=== PATIENT | female | born 1955 | race Asian ===

== ENCOUNTER → 2018-09-05 08:20 | Outpatient (CLI) | payer OTHER, SELFPAY ==
[2016-04-10 01:01] VITALS: BMI 25.2
--- NOTE | 2018-09-05 08:22 | RAD_ITS ---
STUDY: X-RAY - RIGHT HIP REASON FOR EXAM: Hip pain. TECHNIQUE: 2 views of the hip. COMPARISON: None. FINDINGS: There is a healed subtrochanteric fracture with intact orthopedic hardware. There is interval development of a radiolucency adjacent to the proximal and distal femoral intramedullary syed measuring 2 mm in width. Normal acetabulum. Normal hip joint. Normal visualized superior and inferior pubic rami and ischial tuberosities. RAD/HIP, UNI W/ Pelvis 2-3 Views IMPRESSION: Healed subtrochanteric fracture. Interval development of radiolucency adjacent to the femoral intramedullary syed. Electronically Signed: Lio Amaya MD at 9:10 EST Tel , Service support ,
--- OUTSIDE RECORDS SUMMARY | 2018-10-31 08:05 | XMS RPT_ITS ---
:1955 Author Organization OHIP Care Team Providers Name Role Phone Domingo Nowak Attending Unavailable Domingo Nowak Referring Unavailable Domingo Nowak Primary Care Unavailable Domingo Nowak Attending Unavailable Domingo Nowak Referring Unavailable Domingo Nowak Primary Care Unavailable Jocelyn Medina D.C. Attending Unavailable DOCTOR, OUT OF TOWN Referring Unavailable Kerry Hutchison Attending Unavailable DOCTOR, OUT OF TOWN Referring Unavailable Kerry Hutchison Attending Unavailable Kianna Kerry Referring Unavailable SUELLEN MONTEMAYOR Primary Care Unavailable Kerry Hutchison Attending Unavailable Kerry Hutchison Referring Unavailable SUELLEN MONTEMAYOR Primary Care Unavailable Jocelyn Medina D.C. Attending Unavailable DOCTOR, OUT OF TOWN Referring Unavailable Jocelyn Medina D.C. Attending Unavailable DOCTOR, OUT OF TOWN Referring Unavailable PROBLEMS PROBLEMS DATE TYPE CONDITION / CODE ATTENDING STATUS SOURCE 09/18/2018 Unknown M99.02 - Segmental [facility] thoracic region / Repository M99.02(ICD-10) 09/18/2018 Unknown M99.05 - Segmental Dossie, Jocelyn [facility] [place] [facility] pelvic region / Repository M99.05(ICD-10) 09/18/2018 Unknown M99.03 - Segmental Dossie, Jocelyn Active [place] [facility] lumbar region / Repository M99.03(ICD-10) 09/05/2018 Unknown M25.551 - [facility], [facility] [place] right hip / [facility] M25.551(ICD-10) Hospital Repository 09/05/2018 Unknown M54.5 - Low back Ch[place]ore[place], Active [place] pain / [facility] M54.5(ICD-10) Hospital Repository 03/29/2018 Admitting Encntr screen Domingo Nowak [employer] Diagnosis mammogram for System malignant neoplasm Repository of breast / Z12.31(ICD-10) 03/29/2018 Admitting Asymptomatic Domingo Nowak [employer] Diagnosis menopausal state / System Z78.0(ICD-10) Repository 03/05/2018 Admitting Encounter for Domingo Nowak [employer] Diagnosis screening for System osteoporosis / Repository Z13.820(ICD-10) 03/05/2018 Admitting Age-related Domingo Nowak [employer] Diagnosis osteoporosis w/o System current Repository pathological fracture / M81.0(ICD-10) 03/05/2018 Admitting Oth disrd of bone Domingo Nowak [employer] Diagnosis density and System structure, Repository unspecified site / M85.80(ICD-10) PROCEDURES PROCEDURES No Procedure Records FoundRESULTS RESULTS CHIROPRACTIC REPORT Observed: 09/17/2018 Status: F Source: [place] 3:27 PM [facility] REPOSITORY [facility] [place] [address] OFFICE VISIT Date of Service: 09/17/18 MR#: [id number] Acct: [id number] Name: SONYA BRICE Rep #: [id number] : 1955 Provider: Jocelyn You D.C. Age/Sex: 63/F [place] [facility] [place]: Signed Intake Vital Signs09/17/18 Height 5 ft 2 in 12/11/18 Weight: 135 lb 09/17/18 Body Mass Index (BMI) 24.7 Intake Visit Reasons: back pain Chief Complaint: R sided low back pain Is patient in pain?: Yes Allergies No Known Allergies Allergy (Verified 04/09/16 19:12) Medications Calcium Carbonate/Vitamin D3 [Calcium 600-Vit D3 400 Caplet] 1 ea PO DAILY 04/09/16 [History Confirmed 04/09/16] Acetaminophen [Tylenol] 1,000 mg PO Q8 tab 04/13/16 [Rx] Celecoxib [Celebrex] 200 mg PO DAILY #30 cap 04/13/16 [Rx] Metoprolol Tartrate [Lopressor (beta kim)] 25 mg PO BID #60 tab 04/13/16 [Rx] Rivaroxaban [Xarelto] 10 mg PO DAILY@0600 #30 tab 04/13/16 [Rx] traMADol [Ultram] 50 mg PO Q6H PRN PRN #50 tab 04/13/16 [Rx] PFSH Social History Smoking Status: Never smoker alcohol intake: never substance use type: does not use what type of physical activity do you participate in: none HPI back pain: Chief Complaint: Low back pain Visit Number: 3 Details: SONYA BRICE is a 63 year old F who presents with decreased low back pain. She states that after her last treatment her pain greatly decreased, leaving her with a dull ache that bands across the low back. Prolonged sitting causes a slight achiness banding across the low back, although it is no longer sharp shooting. At times bending, lifting, and twisting will cause increased pain, although she denies any numbness ,tingling, or radiculopathy. 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 The pain is bilateral and intermittent and worsens at night. Location: mid-low back pain Duration: intermittent Aggravating or associated factors: prolonged sitting, bending, lifting and sitting Relieving factors: chiro Pain Quality: aching, dull, cramping Exam Musc General: Yes normal posture, normal gait, joint tenderness (T1,T2,T6,T7,L2,L3,L4,L5) and decreased ROM Thoracic/Lumbar Spine: thoracic and lumbar spine normal to inspection, straight leg raise negative bilaterally, Lasegue's sign positive, pain with thoraco- lumbar ROM, paraspinal tenderness bilaterally in the upper thoracic, in the mid thoracic and in the lower lumbar, thoraco-lumbar ROM limited, thoraco-lumbar spasm bilaterally in the upper thoracic and in the lower lumbar Sacroiliac joints: on the right Office Procedures Chiropractic Treatments Procedures Manipulation: 3-4 regions (T1,T6,L4,RIL) Electrical Stimulation: 15 mins (lumbar ) Assessment AND Plan 1. Segmental and somatic dysfunction of thoracic region M99.02 Orders Orders: 2. Segmental and somatic dysfunction of pelvic region M99.05 Orders Orders: 3. Segmental and somatic dysfunction of lumbar region M99.03 Orders Orders: Plan Detail Additional Comments Patient is showing improvement after first adjustment. Continue care. Goals Improve ROM Decrease pain and spasm Follow Up 2 x week Coding Level of Care Code No Charge Diagnoses Segmental and somatic dysfunction of thoracic region M99.02 Segmental and somatic dysfunction of pelvic region M99.05 Segmental and somatic dysfunction of lumbar region M99.03 Additional Codes Procedures - Manipulation: 3-4 regions (87521) Procedures - Electrical Stimulation: 15 mins (53709) 09/17/18 1527 <Electronically signed by Jocelyn You D.C.> Date Jocelyn You D.C. Cosigner Signature: Date (if applicable) CC: ORTHOPEDIC VISIT Observed: 09/17/2018 Status: F Source: [place]ONN REPORT 10:07 AM [facility] REPOSITORY [facility] [address] [place], [place] [address] OFFICE VISIT Date of Service: 09/05/18 MR#: [id number] Acct: [id number] Name: SONYA BRICE Rep #: [id number] : 1955 Provider: Kerry Hutchison DO Age/Sex: 63/F Location: [facility] [place] [place] Status: Signed Intake Intake Visit Reasons: RIGHT HIP Allergies No Known Allergies Allergy (Verified 04/09/16 19:12) Medications Calcium Carbonate/Vitamin D3 [Calcium 600-Vit D3 400 Caplet] 1 ea PO DAILY 04/09/16 [History Confirmed 04/09/16] Acetaminophen [Tylenol] 1,000 mg PO Q8 tab 04/13/16 [Rx] Celecoxib [Celebrex] 200 mg PO DAILY #30 cap 04/13/16 [Rx] Metoprolol Tartrate [Lopressor (beta kim)] 25 mg PO BID #60 tab 04/13/16 [Rx] Rivaroxaban [Xarelto] 10 mg PO DAILY@0600 #30 tab 04/13/16 [Rx] traMADol [Ultram] 50 mg PO Q6H PRN PRN #50 tab 04/13/16 [Rx] PFSH Social History Smoking Status: Never smoker alcohol intake: never substance use type: does not use what type of physical activity do you participate in: none HPI RIGHT HIP: Details: SONYA BRICE is a 63 year old F here today for lateral right hip pain. She was able to travel with no concerns and walk all around. About a month ago she began having right hip and right low back pain but she started using otc pain meds that have helped, she has very little pain today. Denies numbness, tingling, bowel or bladder problems or other associated symptoms today. Assessment AND Plan 1. Low back pain M54.5 Plan xrays of lumbar show ddd, see chart for further details. discussed with radiologist, no signs of lucency. X-rays were reviewed. There is good alignment noted, lumbar images are Explained that she likely had some back pain from her heavy lifting, there is no pain on hip exam today, neg heel strike. Instructed to continue to be active and use the otc meds as needed. She could also be developing some gluteus medius tendonitis. Encouraged to follow up with Dr You as well. Follow up in [] or sooner if pain, swelling, numbness or associated symptoms, or concerns develop. All questions answered. Patient in agreement of plan. Orders Orders: Plan Detail Other Orders Orders: Goals Improve ROM Decrease pain and spasm Coding Level of Care Code Off vis,est,level 3 Diagnoses Low back pain M54.5 09/17/18 1007 <Electronically signed by Kerry Chicorelli DO> Date Kerry Hutchison DO Joseigner Signature: Date (if applicable) CC: CHIROPRACTIC REPORT Observed: 09/12/2018 Status: F Source: [place] 3:11 PM [facility] REPOSITORY [facility] [address] [place] [address] OFFICE VISIT Date of Service: 09/12/18 MR#: [id number] Acct: [id number] Name: SONYA BRICE Rep #: [id number] : 1955 Provider: Jocelyn You D.C. Age/Sex: 63/F [place] [facility] [place] Status: Signed Intake Vital Signs09/12/18 Height 5 ft 2 in 09/12/18 Weight: 135 lb 09/12/18 Body Mass Index (BMI) 24.7 Intake Visit Reasons: back pain Chief Complaint: R sided low back pain Is patient in pain?: Yes Allergies No Known Allergies Allergy (Verified 04/09/16 19:12) Medications Calcium Carbonate/Vitamin D3 [Calcium 600-Vit D3 400 Caplet] 1 ea PO DAILY 04/09/16 [History Confirmed 04/09/16] Acetaminophen [Tylenol] 1,000 mg PO Q8 tab 04/13/16 [Rx] Celecoxib [Celebrex] 200 mg PO DAILY #30 cap 04/13/16 [Rx] Metoprolol Tartrate [Lopressor (beta kim)] 25 mg PO BID #60 tab 04/13/16 [Rx] Rivaroxaban [Xarelto] 10 mg PO DAILY@0600 #30 tab 04/13/16 [Rx] traMADol [Ultram] 50 mg PO Q6H PRN PRN #50 tab 04/13/16 [Rx] PFSH Social History Smoking Status: Never smoker alcohol intake: never substance use type: does not use what type of physical activity do you participate in: none HPI back pain : Chief Complaint: R sided low back pain Visit Number: 2 Details: SONYA BRICE is a 63 year old F who presents with R sided low back pain. She states that after therapy her pain decreased, leaving her with a sore ache banding across the low back. Bending, lifting, twisting, and rotation of the back cause increased pain. Today Sonya rates her pain a 3/10 and describes it as a tight and sore ache that bands across the low back, she denies any numbness, tingling, or radiculopathy. Location: R sided low back pain Duration: intermittent Aggravating or associated factors: bending, lifting, and twisting Relieving factors: unknown Pain Quality: aching, dull, cramping, sharp Exam Musc General: Yes normal posture, normal gait, joint tenderness (T11,T12,L1,L2,L3,L4,L5) and decreased ROM Thoracic/Lumbar Spine: thoracic and lumbar spine normal to inspection, straight leg raise negative bilaterally, Lasegue's sign positive, pain with thoraco- lumbar ROM, paraspinal tenderness, thoraco-lumbar ROM limited, thoraco-lumbar spasm Sacroiliac joints: on the right Office Procedures Chiropractic Treatments Procedures Manipulation: 3-4 regions (T11,L3,L5, RIL) Electrical Stimulation: 15 mins (Lumbar ) Assessment AND Plan Problems 1. Segmental and somatic dysfunction of thoracic region M99.02 2. Segmental and somatic dysfunction of pelvic region M99.05 3. Segmental and somatic dysfunction of lumbar region M99.03 Plan Began acute care treatment with patient. Follow up with acute care treatment plan. Monitor patient response to adjustment. Orders Orders: Plan Detail Goals Improve ROM Decrease pain and spasm Follow Up 2 x week Coding Level of Care Code No Charge Diagnoses Segmental and somatic dysfunction of thoracic region M99.02 Segmental and somatic dysfunction of pelvic region M99.05 Segmental and somatic dysfunction of lumbar region M99.03 Additional Codes Procedures - Manipulation: 3-4 regions (67514) Procedures - Electrical Stimulation: 15 mins (23877) 09/12/18 4349 <Electronically signed by Jocelyn You D.C.> Date Jocelyn Garciaigner Signature: Date (if applicable) CC: CHIROPRACTIC REPORT Observed: 09/10/2018 Status: F Source: [place] 4:18 PM [facility] [address] [place] [address] OFFICE VISIT Date of Service: 09/10/18 MR#: [id number] Acct: [id number] Name: SONYA BRICE Rep #: [id number] : 1955 Provider: Jocelyn You D.C. Age/Sex: 63/F [place] [facility] [place]: Signed Intake Vital Signs09/10/18 Height 5 ft 2 in 09/10/18 Weight: 135 lb 09/10/18 Body Mass Index (BMI) 24.7 Intake Visit Reasons: back pain Chief Complaint: R sided low back pain Accompanied by: Is patient in pain?: Yes Allergies No Known Allergies Allergy (Verified 04/09/16 19:12) Medications Calcium Carbonate/Vitamin D3 [Calcium 600-Vit D3 400 Caplet] 1 ea PO DAILY 04/09/16 [History Confirmed 04/09/16] Acetaminophen [Tylenol] 1,000 mg PO Q8 tab 04/13/16 [Rx] Celecoxib [Celebrex] 200 mg PO DAILY #30 cap 04/13/16 [Rx] Metoprolol Tartrate [Lopressor (beta kim)] 25 mg PO BID #60 tab 04/13/16 [Rx] Rivaroxaban [Xarelto] 10 mg PO DAILY@0600 #30 tab 04/13/16 [Rx] traMADol [Ultram] 50 mg PO Q6H PRN PRN #50 tab 04/13/16 [Rx] PFSH Social History Smoking Status: Never smoker alcohol intake: never substance use type: does not use what type of physical activity do you participate in: none HPI back pain : Chief Complaint: R sided low back pain Visit Number: 1 Referral source: Dr.Chic Details: SONYA BRICE is a 63 year old F who presents with R sided low back pain. The patient has history of a broken R femur, she states that after the injury her low back pain greatly increased. Today Sonya states that her pain is a sharp ache that bands across the low back and radiates into the R hip and thigh. Walking, bending, twisting, and prolonged sitting causes increased pain. Sonya denies any numbness, tingling, or radiculopathy.She has no history of low back injury or surgery. Location: R low back pain Duration: constant Aggravating or associated factors: walking, bending, twisting and sitting Relieving factors: unknown Pain Quality: aching, dull, cramping, sharp, radiating Exam Musc General: Yes normal posture, normal gait, joint tenderness (T11,T12,L1,L2,L3,L4,L5) and decreased ROM Thoracic/Lumbar Spine: thoracic and lumbar spine normal to inspection, straight leg raise negative bilaterally, Lasegue's sign positive on the right, pain with thoraco-lumbar ROM with forward flexion, with lateral flexion to the right, with lateral flexion to the left and other (extension), paraspinal tenderness on the right greater than left (lower thoracic and lumbars), thoraco-lumbar ROM limited with forward flexion, with lateral flexion to the right and with lateral flexion to the left, thoraco-lumbar spasm on the left greater than right (thoracolumbar paraspinal, QL) Sacroiliac joints: on the right tender to palpation Neuro General: alert, awake, oriented x3, gait normal, normal light touch, pain and propioception, no focal motor deficits Ortho Test CERVICAL THORACIC Kemps: Positive, Rig (lower thoracic pain) Hankins: Negative LUMBAR Kemps: Positive, Rig Valsalvas: Positive (pain in lumbar) SLR: Negative Iliac Compression: Negative Office Procedures Chiropractic Treatments Procedures Electrical Stimulation: 15 mins Location: thor/lumbar Traction, Mechanical: Yes Details: Traction: thor/lumb, 15min . Procedures Manipulation: 3-4 regions (C4-C7, T3-T5) Electrical Stimulation: 15 mins (Lumbar ) Traction, Mechanical: Yes Assessment AND Plan 1. Segmental and somatic dysfunction of lumbar region M99.03 Orders Orders: 2. Segmental and somatic dysfunction of thoracic region M99.02 3. Segmental and somatic dysfunction of pelvic region M99.05 Plan Detail Additional Comments Reviewed lumbar xrays which revealed multilevel degenerative changes. Goals Improve ROM Decrease pain and spasm Follow Up 2 x week Coding Level of Care Code Off vis,new,level 3 Diagnoses Segmental and somatic dysfunction of lumbar region M99.03 Segmental and somatic dysfunction of thoracic region M99.02 Segmental and somatic dysfunction of pelvic region M99.05 Additional Codes Procedures - Electrical Stimulation: 15 mins (53969) Procedures - Traction, Mechanical: Yes (80883) Procedures - Manipulation: 3-4 regions (62995) Procedures - Electrical Stimulation: 15 mins (88996) Procedures - Traction, Mechanical: Yes (36756) 09/10/18 1618 <Electronically signed by Jocelyn You D.C.> Date Jocelyn You D.C. Cosigner Signature: Date (if applicable) CC: L/S SPINE COMP/W Observed: 09/05/2018 Status: F Source: [place] BENDING VIEWS 8:55 AM [facility] REPOSITORY [facility] Services [address] [place] [address] L/S Spine Comp/w Bending Views MR#: [id number] Acct: [id number] Name: SONYA BRICE Rep #: [id number] : 1955 F 63 From: Fabiano Almonte MD PCP: OUT OF TOWN DOCTOR Status: REG CLI Study: L/S Spine Comp/w Bending Views Date of Exam: 09/05/18 Exam# [id number] Ordering Dr: Kerry Hutchison DO STUDY: X-RAY - LUMBAR SPINE REASON FOR EXAM: Female, 63 years old. Chronic low back pain. TECHNIQUE: 6 view(s) of the lumbar spine were obtained including flexion and extension and oblique views. COMPARISON: None FINDINGS: Normal lumbar lordosis. There is no substantial scoliosis. Minimal retrolisthesis of L3 on L4. This is unchanged during the flexion and extension maneuvers. There is multilevel endplate spondylosis of the lumbar vertebrae. There is multi-level degenerative disc disease with multi-level disc space narrowing. Moderate amount of fecal material is seen in the colon. The patient is status post cholecystectomy. RAD/L/S Spine Comp/w Bending Views IMPRESSION: Degenerative changes of the spine, as detailed above. Minimal retrolisthesis of L3 on L4. Electronically Signed: Fabiano Almonte MD at 12:46 EST Tel [phone], Service support , CC: Kerry Hutchison DO; OUT OF TOWN DOCTOR Inspector Golf Ball: Signed HIP, UNI W/ PELVIS Observed: 09/05/2018 Status: F Source: [place] 2-3 VIEWS 8:22 AM [facility] REPOSITORY [facility] Imaging Services [address] [place] [address] HIP, UNI W/ Pelvis 2-3 Views MR#: [id number] Acct: [id number] Name: SONYA BRICE Rep #: [id number] : 1955 F 63 From: Lio Amaya MD PCP: OUT OF TOWN DOCTOR Status: REG CLI Study: HIP, UNI W/ Pelvis 2-3 Views Date of Exam: 09/05/18 Exam# [id number] Ordering Dr: Kerry Hutchison DO STUDY: X-RAY - RIGHT HIP REASON FOR EXAM: Hip pain. TECHNIQUE: 2 views of the hip. COMPARISON: None. FINDINGS: There is a healed subtrochanteric fracture with intact orthopedic hardware. There is interval development of a radiolucency adjacent to the proximal and distal femoral intramedullary syed measuring 2 mm in width. Normal acetabulum. Normal hip joint. Normal visualized superior and inferior pubic rami and ischial tuberosities. RAD/HIP, UNI W/ Pelvis 2-3 Views IMPRESSION: Healed subtrochanteric fracture. Interval development of radiolucency adjacent to the femoral intramedullary syed. Electronically Signed: Lio Amaya MD at 9:10 EST Tel , Service support , CC: Kerry Hutchison DO; OUT OF TOWN DOCTOR Inspector Golf Ball: Signed MG BREAST TOMOSYNTHESIS Observed: 03/29/2018 Status: F Source: [facility] 12:00 AM SYSTEM REPOSITORY Patient Name: SONYA BRICE Mammography Exam Date/Time 03/29/2018 09:13:41 EDT Exam MG Breast Tomosynthesis BI Scr Ordering Physician DO NOWAK JOHN CHRISTIAN Accession Number [id number] CPT4 Codes 66832 (MG Breast Tomosynthesis Scr Bl), 14720 (MG MAMMO 2D SCREENING) Reason For Exam screening Report PATIENT HISTORY: Patient is postmenopausal. No known family history of cancer. Benign excisional biopsy of the right breast, 2007. No Hormone Replacement Therapy Patient has never smoked. Patient's BMI is 24.1. TIME SINCE LAST MAMMOGRAM: Last mammogram was performed 1 year and 9 months ago. REASON FOR EXAM: screening, asymptomatic. PROCEDURE: MG BREAST TOMOSYNTHESIS BL SCR: MARCH 29, 2018 - 2D/3D Procedure 3D Bilateral CC and MLO view(s) were taken. 2D Bilateral CC and MLO view(s) were taken. Prior study comparison: July 03, 2016, bilateral screening mammogram performed at [facility]. May 04, 2015, bilateral screening mammogram performed at [facility]. TISSUE DENSITY: There are scattered fibroglandular densities. . FINDINGS: No suspicious masses, architectural distortions or suspiciously clustered microcalcifications are identified. There is no evidence of skin thickening or nipple retraction. There are no significant changes when compared with prior studies. Markings on images: BB's = Nipples; skin lesions Open lower sioux = Palpable Line = Scar 2D digital mammography and tomosynthesis imaging were performed and reviewed with CAD. ASSESSMENT: Category 1 Negative No mammographic evidence of malignancy. RECOMMENDATION: Routine screening mammogram of both breasts in 1 year. . Report Dictated on Cancer Risk Assessment: This risk assessment is based on patient provided information collected in a risk survey taken at the time of this examination. 5 year breast cancer risk is 1.7% - if greater than or equal to 1.7%, recommend discussion regarding the significance of these results and options for possible risk reduction. Lifetime breast cancer risk: 8% - If greater than or equal to 20%, consider annual mammogram and annual screening Breast MRI or follow up in high risk clinic. Is the patient at elevated risk based on the HBOC criteria? No (Hereditary Breast and Ovarian Cancer) - If yes, consider genetic counseling and testing with high risk follow up. HNPCC mutation risk (Hudson Syndrome): 1% - if greater than or equal to 5%, consider genetic counseling, testing and screening colonoscopy. Final Signed Date and Time: 03/29/2018 10:17 am Signed by: MD FAYE LAUREN B OT BONE DENSITY DEXA Observed: 03/05/2018 Status: F Source: [employer] AXIAL SKELETON 3:35 PM SYSTEM REPOSITORY Patient Name: SONYA BRICE Bone Density Exam Date/Time 03/05/2018 14:44:07 EDT Exam OT Bone Density DEXA Axial Skeleton Ordering Physician DO NOWAK JOHN CHRISTIAN Accession Number [id number] CPT4 Codes 60158 () Reason For Exam age-related osteoporosis without current pathological fracture Report DXA BONE DENSITOMETRY: CLINICAL INDICATION: Age-related osteoporosis. Screening for osteoporosis. COMPARISON: 02/10/2016 TECHNIQUE: Quantitative bone mineral densitometry of the hip and lumbar spine was performed with a dual energy x-ray observed absorptiometry device - Hologic Regions of interest were obtained through the left proximal femur and compared to the normal value of young adult women. Regions of interest were also obtained through the lumbar vertebrae with an average value determined and compared to the normal value of young adult woman. The difference between your measured bone density and the bone density of a normal young woman is expressed in standard deviations as the T score. Similarly, your measured bone is also compared to age and race matched values, and expressed in standard deviations as the Z score. According to World Health Organization criteria: T-score of -1.0 or higher is normal. T-score between -1.0 and -2.5 is low bone density or osteopenia. T-score of -2.5 or lower is abnormally low, compatible with osteoporosis. FINDINGS: Femoral neck Density: 0.659 g/cm2. T-score: -1.7 Z-score: -0.4 Total Hip Density: 0.848 g/cm2. T-score: -0.8 Z-score: 0.2 Comparison from prior examination: Increase in bone mineral density of 4.9 percent compared to the previous study. Spine: L1-L4 Density 1.257 g/cm2. T-score: 1.9 Z-score: 3.4 Comparison from prior examination: Increase in bone mineral density of 12.4 percent compared to the prior study. FRACTURE RISK: The estimated 10 year risk for a hip fracture is 1.6 % and for a major osteoporosis-related fracture is 15 %. (FRAX web version 3.11). IMPRESSION: 1. Osteopenia based on the bone mineral density of the left femoral neck. 2. Increase in bone mineral density of the left hip and lumbar spine compared to the prior study. Report Dictated on Final Dictating Physician: MD HERNANDEZ NEIL Signed Date and Time: 03/05/2018 3:37 pm Signed by: MD HERNANDEZ NEIL Transcribed Date and Time: 03/05/2018 3:38 ALLERGIES ALLERGIES DATE TYPE / CODE NAME / CODE REACTION SEVERITY SOURCE 04/09/2016 Drug No Known Unknown [place] [facility] Allergy/4160 Allergies/F00 [facility] [address]155(SNOMED 8424630(RXNOR Repository CT) M) ENCOUNTERS ENCOUNTERS ADMIT/DISCHARGE ACCOUNT NUMBER ADMITTING ENCOUNTER LOCATION SOURCE CLASS 09/17/2018/09/17/20 [id number] Ambulatory BMSBuilding: [place] 18 BMS.[facility] Repository 09/12/2018/09/12/20 [id number] Ambulatory BMSBuilding: [place] 18 BMS.[facility] Repository 09/10/2018/09/10/20 [id number] Ambulatory BMSBuilding: [place] 18 BMS.[facility] Repository 09/05/[id number] [facility] ding:HPRAD Repository 09/05/[id number] [facility] ding:HPRAD Repository 09/05/2018/09/05/20 [id number] Ambulatory BMSBuilding: [place] 18 BMS.[facility] Repository 03/29/2018 [id number] Ambulatory [facility] Repository 03/05/[id number] [facility] Repository PAYERS PAYERS ENCOUNTER GUARANTOR PAYER SUBSCRIBER SOURCE 09/17/2018 SONYA David Primary SONYA David [place] [id number] [place] Insurance:MEDICAL BAILEYDOB: [facility] [id number] [address]Sax: Number: Repository [id number] (HP) Date:[place]695[place] [id number]: 09/17/2018 Secondary NOT GIVENUNK [place] Insurance:SELF PAY [facility] Number: Effective Repository Date:2018-09-17 09/12/2018 SONYA H Primary SONYA David [place] [id number] ST[place] Insurance:MEDICAL BAILEYDOB: [facility] [id number] Health Clinic [address]Kqq: Number: Repository [id number] (HP) Date:1889-66-60AA[address] [address]PR: 09/12/2018 Secondary NOT GIVENUNK [place] Insurance:SELF PAY [facility] Number: Effective Repository Date:2018-09-12 09/10/2018 SONYA H Primary SONYA David [place] [id number] STYX Insurance:MEDICAL BAILEYDOB: [facility] [id number] Health Clinic [address]Sii: Number: Repository [id number] () Date:6106-06-41GY [address] [address]HB: 09/10/2018 Secondary NOT GIVENUNK [place] Insurance:SELF PAY [facility] Number: Effective Repository Date:2018-09-10 09/05/2018 SONYA [id number] Primary SONYA BAILEYDOB: [place] Insurance:MEDICAL [id number] [address]Abu: (330) Number: Repository [phone] () [id number] Date:6906-61-38CI [place] [id number]: 09/05/2018 Secondary NOT GIVENUNK [place] Insurance:SELF PAY [facility] Number: Effective Repository Date:2018-09-05 09/05/2018 SONYA [id number] Primary SONYA BAILEYDOB: [place] Insurance:MEDICAL [id number] Hospital [address]Xav: (330) Number: Repository [phone] () [id number] Date:1109-38-37VQ [address] [address]OE: 09/05/2018 Secondary NOT GIVENUNK [place] Insurance:SELF PAY [facility] Number: Effective Repository Date:2018-09-05 09/05/2018 SONYA [id number] Primary SONYA BAILEYDOB: [place] Insurance:MEDICAL [id number] Hospital [id number]: (330) Number: Repository [phone] () [id number] Date:1226-81-17HR [place] [id number]: 09/05/2018 Secondary NOT GIVENUNK [place] Insurance:SELF PAY [facility] Number: Effective Repository Date:2018-08-22 03/29/2018 [facility] [id number] [facility] [id number] Repository [facility] Number: [place]: [address]Rbu: (HP) 03/05/2018 [facility] Insurance:Medical [place]: System [id number] [facility] [id number] Repository [facility] Number: [place], [place] Date: [address]Byx: (HP)
== END ==
PROVIDERS: Referring Provider Orthopaedic Surgery; Visit Provider Orthopaedic Surgery
DX: M25.551 Pain in right hip (principal)
CPT/HCPCS: 73502

== ENCOUNTER → 2018-09-05 08:51 | Outpatient (CLI) | payer OTHER, SELFPAY ==
[2016-04-10 01:01] VITALS: BMI 25.2
--- NOTE | 2018-09-05 08:55 | RAD_ITS ---
STUDY: X-RAY - LUMBAR SPINE REASON FOR EXAM: Female, 63 years old. Chronic low back pain. TECHNIQUE: 6 view(s) of the lumbar spine were obtained including flexion and extension and oblique views. COMPARISON: None FINDINGS: Normal lumbar lordosis. There is no substantial scoliosis. Minimal retrolisthesis of L3 on L4. This is unchanged during the flexion and extension maneuvers. There is multilevel endplate spondylosis of the lumbar vertebrae. There is multi-level degenerative disc disease with multi-level disc space narrowing. Moderate amount of fecal material is seen in the colon. The patient is status post cholecystectomy. RAD/L/S Spine Comp/w Bending Views IMPRESSION: Degenerative changes of the spine, as detailed above. Minimal retrolisthesis of L3 on L4. Electronically Signed: Fabiano Almonte MD at 12:46 EST Tel [phone], Service support ,
--- OUTSIDE RECORDS SUMMARY | 2018-10-31 08:34 | XMS RPT_ITS ---
[...] STATUS SOURCE 09/18/2018 Unknown M99.02 - Segmental [facility] thoracic region / Repository M99.02(ICD-10) 09/18/2018 Unknown M99.05 - Segmental Dossie, Jocelyn Active [place] and somatic [facility] dysfunction of Hospital pelvic region / Repository M99.05(ICD-10) 09/18/2018 Unknown M99.03 - Segmental Dossie, Jocelyn Active [place] and somatic [facility] dysfunction of Hospital lumbar region / Repository M99.03(ICD-10) 09/05/2018 Unknown M25.551 - [facility] [place] right hip / [facility] M25.551(ICD-10) Hospital Repository 09/05/2018 Unknown M54.5 - Low back [place], Active [place] pain / [facility] M54.5(ICD-10) Hospital Repository 03/29/2018 Admitting Encntr screen [facility] [employer] Diagnosis mammogram for System malignant neoplasm Repository of breast / Z12.31(ICD-10) 03/29/2018 Admitting Asymptomatic [facility] [employer] Diagnosis menopausal state / System Z78.0(ICD-10) Repository 03/05/2018 Admitting Encounter for [facility] [employer] Diagnosis screening for System osteoporosis / Repository Z13.820(ICD-10) 03/05/2018 Admitting Age-related [facility] [employer] Diagnosis osteoporosis w/o System current Repository pathological fracture / M81.0(ICD-10) 03/05/2018 Admitting Oth disrd of bone [facility] [employer] Diagnosis density and System structure, Repository unspecified site / M85.80(ICD-10) PROCEDURES PROCEDURES No Procedure Records FoundRESULTS RESULTS CHIROPRACTIC REPORT Observed: 09/17/2018 Status: F Source: JON[place] 3:27 PM [facility] REPOSITORY [facility] [place] [address] OFFICE VISIT Date of Service: 09/17/18 MR#: [id number] Acct: [id number] Name: SONYA BRICE Rep #: [id number] : 1955 Provider: Jocelyn You D.C. Age/Sex: 63/F [place] [facility] Status: Signed Intake Vital Signs09/17/18 Height 5 [...] Additional Codes Procedures - Manipulation: 3-4 regions (03854) Procedures - Electrical Stimulation: 15 mins (17840) 09/17/18 1527 <Electronically signed by Jocelyn You D.C.> Date Jocelyn You D.C. Cosigner Signature: Date (if applicable) CC: ORTHOPEDIC VISIT Observed: 09/17/2018 Status: F Source: JONN REPORT 10:07 AM [facility] REPOSITORY [facility] [address] [place], [place] [address] OFFICE VISIT Date of Service: 09/05/18 MR#: [id number] Acct: [id number] Name: SONYA BRICE Rep #: [id number] : 1955 Provider: Kerry Hutchison DO Age/Sex: 63/F Location: [facility] Status: Signed Intake Intake Visit Reasons: RIGHT [...] CHIROPRACTIC REPORT Observed: 09/12/2018 Status: F Source: [place] 3:11 PM [facility] REPOSITORY [facility] [address] [place] [address] OFFICE VISIT Date of Service: 09/12/18 MR#: [id number] Acct: [id number] Name: SONYA BRICE Rep #: [id number] : 1955 Provider: Jocelyn You D.C. Age/Sex: 63/F Location[place] [facility] Status: Signed Intake Vital Signs09/12/18 Height 5 [...] Additional Codes Procedures - Manipulation: 3-4 regions (17322) Procedures - Electrical Stimulation: 15 mins (39654) 09/12/18 5301 <Electronically signed by Jocelyn You D.C.> Date Jocelyn Garciaigner Signature: Date (if applicable) CC: CHIROPRACTIC REPORT Observed: 09/10/2018 Status: F Source: [place] 4:18 PM [facility] [address] [place] [address] OFFICE VISIT Date of Service: 09/10/18 MR#: [id number] Acct: [id number] Name: SONYA BRICE Rep #: [id number] : 1955 Provider: Jocelyn You D.C. Age/Sex: 63/F Location[place] [facility] Status: Signed Intake Vital Signs09/10/18 Height 5 [...] Codes Procedures - Electrical Stimulation: 15 mins (59061) Procedures - Traction, Mechanical: Yes (86339) Procedures - Manipulation: 3-4 regions (98109) Procedures - Electrical Stimulation: 15 mins (52309) Procedures - Traction, Mechanical: Yes (56558) 09/10/18 1618 <Electronically signed by Jocelyn You D.C.> Date Jocelyn You D.C. Cosigner Signature: Date (if applicable) CC: L/S SPINE COMP/W Observed: 09/05/2018 Status: F Source: [place] BENDING VIEWS 8:55 AM [facility] REPOSITORY [facility] [address] [place] [address] L/S Spine Comp/w Bending Views MR#: [id number] Acct: [id number] Name: SONYA BRICE Rep #: [id number] : 1955 F 63 From: Fabiano Almonte MD PCP: OUT OF TOWN DOCTOR Status: REG CLI Study: L/S Spine Comp/w Bending Views Date of Exam: 09/05/18 Exam# [id number] Ordering Dr: Kerry Hutchison DO STUDY: X-RAY [...] Fabiano Almonte MD at 12:46 EST Tel [phone], Service support , CC: Kerry Hutchison DO; OUT OF TOWN DOCTOR Physician Compensation Analyst: Signed HIP, UNI W/ PELVIS Observed: 09/05/2018 Status: F Source: JON[place] 2-3 VIEWS 8:22 AM [facility] REPOSITORY [facility] Imaging Services [address] [place] [address] HIP, UNI W/ Pelvis 2-3 Views MR#: [id number] Acct: [id number] Name: SONYA BRICE Rep #: [id number] : 1955 F 63 From: Lio Amaya MD PCP: OUT OF TOWN DOCTOR Status: REG CLI Study: HIP, UNI W/ Pelvis 2-3 Views Date of Exam: 09/05/18 Exam# [id number] Ordering Dr: Kerry Hutchison DO STUDY: X-RAY [...] Kerry Hutchison DO; OUT OF TOWN DOCTOR Physician Compensation Analyst: Signed MG BREAST TOMOSYNTHESIS Observed: 03/29/2018 Status: F Source: [facility] 12:00 AM SYSTEM REPOSITORY Patient Name: SONYA BRICE Mammography Exam Date/Time 03/29/2018 09:13:41 EDT Exam MG Breast Tomosynthesis BI Scr Ordering Physician DO NOWAK JOHN CHRISTIAN Accession Number [id number] CPT4 Codes 73595 (MG Breast Tomosynthesis Scr Bl), 99479 (MG MAMMO 2D SCREENING) Reason For Exam [...] 03, 2016, bilateral screening mammogram performed at [facility]. May 04, 2015, bilateral screening mammogram performed at [facility]. TISSUE DENSITY: There are scattered fibroglandular densities. . FINDINGS: No suspicious masses, architectural distortions or suspiciously clustered microcalcifications are identified. There is no evidence of skin thickening or nipple retraction. There are no significant changes when compared with prior studies. Markings on images: BB's = Nipples; skin lesions Open mechoopda = Palpable Line = Scar 2D digital [...] DENSITY DEXA Observed: 03/05/2018 Status: F Source: [facility] [facility] AXIAL SKELETON 3:35 PM SYSTEM REPOSITORY Patient Name: SONYA BRICE Bone Density Exam Date/Time 03/05/2018 14:44:07 EDT Exam OT Bone Density DEXA Axial Skeleton Ordering Physician DO NOWAK JOHN CHRISTIAN Accession Number [id number] CPT4 Codes 08304 () Reason For Exam age-related osteoporosis without [...] SEVERITY SOURCE 04/09/2016 Drug No Known Unknown [place] [facility] Allergy/4160 Allergies/F00 [facility] 79155(SNOMED 1545017(RXNOR Repository CT) M) ENCOUNTERS ENCOUNTERS ADMIT/DISCHARGE ACCOUNT NUMBER ADMITTING ENCOUNTER LOCATION SOURCE CLASS 09/17/2018/09/17/20 [id number] Ambulatory BMSBuilding: [place] 18 BMS.[facility] Repository 09/12/2018/09/12/20 [id number] Ambulatory BMSBuilding: [place] 18 BMS.[facility] Repository 09/10/2018/09/10/20 [id number] Ambulatory BMSBuilding: [place] 18 BMS.[facility] Repository 09/05/2018 [id number] Ambulatory [facility] ding:HPRAD Repository 09/05/2018 [id number] Ambulatory [facility] ding:HPRAD Repository 09/05/2018/09/05/20 [id number] Ambulatory BMSBuilding: [place] 18 BMS.[facility] Repository 03/29/2018 [id number] Ambulatory [facility] Repository 03/05/2018 [id number] [facility] Repository PAYERS PAYERS ENCOUNTER GUARANTOR PAYER SUBSCRIBER SOURCE 09/17/2018 SONYA David Primary SONYA David [place] [id number] [place] Insurance:MEDICAL BAILEYDOB: [facility] [id number] [facility] [address]Zfx: Number: Repository [id number] (HP) Date:5853-69-64TFAmanda [place] [phone]: 09/17/2018 Secondary NOT GIVENUNK [place] Insurance:SELF PAY [facility] Number: Effective Repository Date:2018-09-17 09/12/2018 SONYA H Primary SONYA David [place] [id number] ST[place] Insurance:MEDICAL BAILEYDOB: [facility] [id number] [facility] Medical Center [address]Xqa: Number: Repository [id number] (HP) Date:4257-59-31CI[address] [address]UO: 09/12/2018 Secondary NOT GIVENUNK [place] Insurance:SELF PAY [facility] Number: Effective Repository Date:2018-09-12 09/10/2018 SONYA H Primary SONYA David [place] [id number] ST[place] Insurance:MEDICAL BAILEYDOB: [facility] [id number] Regional Medical Center [address]Hei: Number: Repository [id number] () Date:8066-56-76YQ [address] [address]BJ: 09/10/2018 Secondary NOT GIVENUNK [place] Insurance:SELF PAY [facility] Number: Effective Repository Date:2018-09-10 09/05/2018 SONYA [id number] Primary SONYA BAILEYDOB: [place] Insurance:MEDICAL [id number] [facility] [address]Pde: (330) Number: Repository [phone] () [id number] Date:0900-28-86YD [place] [id number]: 09/05/2018 Secondary NOT GIVENUNK [place] Insurance:SELF PAY [facility] Number: Effective Repository Date:2018-09-05 09/05/2018 SONYA [id number] Primary SONYA BAILEYDOB: [place] Insurance:MEDICAL [id number] [facility] [address]Rgb: (330) Number: Repository [phone] () [id number] Date:5883-90-97BN [address] [address]ZT: 09/05/2018 Secondary NOT GIVENUNK [place] Insurance:SELF PAY [facility] Number: Effective Repository Date:2018-09-05 09/05/2018 SONYA [id number] Primary SONYA BAILEYDOB: [place] Insurance:MEDICAL [id number] [facility] Specialty [facility] [address]Gnz: (330) Number: Repository [phone] () [id number] Date:6386-78-11TY [place] 0590101[address]WP: 09/05/2018 Secondary NOT GIVENUNK [place] Insurance:SELF PAY [facility] Number: Effective Repository Date:2018-08-22 03/29/2018 [facility] [id number] [facility] [id number] Repository [facility] Number: [place] [address], [place] Date: [address]Eiy: (HP) 03/05/2018 [facility] Insurance:Medical [place] Hat[place]OB: System [id number] [facility] [id number] Repository [facility] Number: [place] [address], [place] Date: [address]Grn: (HP)
== END ==
PROVIDERS: Referring Provider Orthopaedic Surgery; Visit Provider Orthopaedic Surgery
DX: M54.5 Low back pain (principal)
CPT/HCPCS: 72114